=== PATIENT | female | born 1995 | race Caucasian/White ===

== ENCOUNTER 2018-08-19 20:06 | Emergency (ER) | payer OTHER ==
[~2018-08-19] VITALS: Ht 167.6 cm; Wt 123.2 kg
[~2018-08-19 20:06] MED LIST: CEPHALEXIN500 MG OR; NO CURRENT MEDS; ZOFRAN4 M1 OR
[2018-08-19 21:35] LABS: URINE BILIRUBIN - DIPSTICK NEGATIVE (NEGATIVE); URINE BLOOD DIPSTICK NEGATIVE (NEGATIVE); URINE COLOR YELLOW; URINE GLUCOSE - DIPSTICK NEGATIVE (NEGATIVE); URINE KETONE NEGATIVE (NEGATIVE); URINE LEUK ESTERASE NEGATIVE (NEGATIVE); URINE NITRITE - DIPSTICK NEGATIVE (Negative); URINE PROTEIN - DIPSTICK NEGATIVE (NEG-TRACE); URINE SPECIFIC GRAVITY >=1.030; URINE UROBILINOGEN - DIPSTICK 0.2 E.U./dL (0.2)
[2018-08-19 21:36] LABS: URINE CLARITY CLEAR
[2018-08-19] MEDS ORDERED: FLEXERIL PO (22:31)
[2018-08-19] MEDS ORDERED: NAPROSYN500 MG PO (22:31)
[2018-08-19 22:40] VITALS: BP 138/70
== END 2018-08-19 22:45 | disposition home or self-care (01) | DRG 552 ==
LOC: ED 20:06
PROVIDERS: Emergency Medicine
DX: M51.16 Intervertebral disc disorders with radiculopathy, lumbar region (principal)